=== PATIENT | male | born 1980 | race Caucasian/White ===

== ENCOUNTER 2017-01-01 16:36 | Emergency (ER) | payer OTHER | END 2017-01-01 18:51 | disposition home or self-care (01) | LOC: ER 16:36 | DX: M54.02 Panniculitis affecting regions of neck and back, cervical region (principal); M54.12 Radiculopathy, cervical region; E78.00 Pure hypercholesterolemia, unspecified; E11.9 Type 2 diabetes mellitus without complications; F17.210 Nicotine dependence, cigarettes, uncomplicated; Z79.84 Long term (current) use of oral hypoglycemic drugs; Z79.899 Other long term (current) drug therapy; Z88.1 Allergy status to other antibiotic agents | CPT/HCPCS: 96372; 99282-25 ==

== ENCOUNTER 2017-01-12 09:08 | Emergency (ER) | payer OTHER | END 2017-01-12 12:00 | disposition home or self-care (01) | LOC: ER 09:08 | DX: J06.9 Acute upper respiratory infection, unspecified (principal); M54.5 Low back pain; I10 Essential (primary) hypertension | CPT/HCPCS: 87400; 96372; 99283-25 ==

== ENCOUNTER 2017-03-11 17:48 | Emergency (ER) | payer OTHER | END 2017-03-11 19:15 | disposition home or self-care (01) | LOC: ER 17:48 | DX: S80.11XA Contusion of right lower leg, initial encounter (principal); W18.09XA Striking against other object with subsequent fall, initial encounter; Y92.009 Unspecified place in unspecified non-institutional (private) residence as the place of occurrence of the external cause; E11.9 Type 2 diabetes mellitus without complications; I10 Essential (primary) hypertension; F17.210 Nicotine dependence, cigarettes, uncomplicated; Z79.84 Long term (current) use of oral hypoglycemic drugs; Z79.899 Other long term (current) drug therapy; Z88.1 Allergy status to other antibiotic agents | CPT/HCPCS: 73590; 99283-25 ==